=== PATIENT | male | born 1955 | race Caucasian/White ===

== ENCOUNTER 2017-09-06 12:37 | Inpatient (IN) | payer BC ==
[~2017-09-06] VITALS: Ht 180.3 cm; Wt 128.0 kg
[2017-09-06] VITALS (14 sets, daily range): BP systolic 134–169; BP diastolic 73–93
[~2017-09-06 12:37] MED LIST: CARVEDILOL25 MG PO; LO-DOSE ASPIRIN81 M2 PO; NIASPAN,SLO-NI500 MG PO; NIASPAN500 MG PO; NITROSTAT,NITR0.4 M1 SL; PHENERGAN-CODE120 ML PO; PLAVIX75 MG PO; PREDNISONE20 MG PO; PRINZIDE 20-121 EACH PO; Tylenol Regular Stre PO
[2017-09-06 13:52] LABS: BASOPHIL (%) 0.7 % (0-1); BASOPHIL COUNT 0.1 K/uL (0-0.1); EOSINOPHIL (%) 1.9 % (0-5); EOSINOPHIL COUNT 0.2 K/uL (0-0.3); IMMATURE GRANULOCYTE (%) 0.5 % (0.0-0.7); LYMPHOCYTE (%) 14.2 % (15-42); LYMPHOCYTE COUNT 1.2 K/uL (1.0-2.8); MCH 28.6 PG (29.0-34.0); MCHC 34.1 G/DL (30.0-36.0); MONOCYTE (%) 8.4 % (3-12); MONOCYTE COUNT 0.7 K/uL (0-0.8); NEUTROPHIL (%) 74.3 % (45-76); NEUTROPHIL COUNT 6.3 K/uL (1.8-6.4); PLATELET COUNT 178 K/uL (156-360); RBC DIS.WIDTH-CV 13.2 % (11.8-14.6); RBC DIS.WIDTH-SD 40.2 % (39-53); RED BLOOD COUNT 5.24 M/uL (4.00-5.50); WHITE BLOOD COUNT 8.5 K/uL (4.1-10.2)
[2017-09-06 14:00] LABS: PTT 27.2 SEC (25-37)
[2017-09-06 14:03] LABS: ALBUMIN 4.2 g/dL (3.2-4.8); CHLORIDE 104 mEq/L (99-109); POTASSIUM 4.4 mEq/L (3.7-5.4); SODIUM 138 mEq/L (136-147)
[2017-09-06 14:04] LABS: AMYLASE 45 IU/L (1-118)
[2017-09-06 14:06] LABS: GLUCOSE 133 mg/dL (70-99); TOTAL PROTEIN 7.3 g/dL (6.4-8.3)
[2017-09-06 14:08] LABS: TOTAL BILIRUBIN 0.3 mg/dL (0.0-1.0)
[2017-09-06 14:09] LABS: ALKALINE PHOSPHATASE 76 IU/L (3-129); SERUM ETHYL ALCOHOL < 10 mg/dL
[2017-09-06 14:10] LABS: CREATININE 0.9 mg/dL (0.6-1.3); GFR ESTIMATE (CALCULATED) > 59 mL/min/ (58.99-99999)
[2017-09-06 14:11] LABS: AST (GOT) 44 IU/L (2-34); UREA NITROGEN (BUN) 16 mg/dL (9-23)
[2017-09-06 14:12] LABS: ALT (GPT) 72 IU/L (3-49)
[2017-09-06 14:13] LABS: LIPASE 19 U/L (1.0-51.0)
[2017-09-06 14:18] LABS: TROP-I INTERPRETATION NEGATIVE; TROPONIN-I < 0.01 ng/mL (0.0-0.30)
[2017-09-06] MEDS ORDERED: DICLOFENAC SODI75 MG PO (15:50)
[2017-09-06] MEDS ORDERED: LISINOPRIL5 MG PO (15:50)
[2017-09-06 15:51] LABS: APPEARANCE CLEAR ((CLEAR)); BILIRUBIN NEGATIVE; BLOOD NEGATIVE; COLOR YELLOW ((YELLOW)); GLUCOSE (STRIP) NEGATIVE; KETONES NEGATIVE; LEUKOCYTES NEGATIVE; NITRITE NEGATIVE; PROTEIN (STRIP) NEGATIVE; SPECIFIC GRAVITY 1.015 (1.000-1.030); UCUL ADDED? NO; UROBILINOGEN 0.2 MG/DL (0.2-1.0)
[2017-09-06] MEDS ORDERED: TEMAZEPAM30 MG PO (15:51)
[2017-09-06] MEDS ORDERED: ONE DAILY FOR1 EAC2 PO (15:52)
[2017-09-06] MEDS ORDERED: SPIRONOLACTONE25 MG PO (15:52)
[2017-09-06] MEDS ORDERED: AGELESS MALE PO (15:55)
[2017-09-06] MEDS ORDERED: MYNEPHRON CAPSUL1 MG PO (15:58)
[2017-09-06 15:59] LABS: AMPHETAMINE NEGATIVE (500 ng/mL); BENZODIAZEPINES PRESUMPTIVE POSITIVE (150 ng/mL); COCAINE NEGATIVE (150 ng/mL); METHAMPHETAMINE NEGATIVE (500 ng/mL); OPIATES (MORPHINE) NEGATIVE (100 ng/mL); PHENCYCLIDINE NEGATIVE (25 ng/mL); THC CANNABINOIDS NEGATIVE (50 ng/mL)
[2017-09-06] MEDS ORDERED: ZETIA10 MG PO (15:59)
[2017-09-06 16:00] LABS: BARBITURATES NEGATIVE (200 ng/mL); BUPRENORPHINE NEGATIVE (10 ng/mL); METHADONE NEGATIVE (200 ng/mL); OXYCODONE NEGATIVE (100 ng/mL); PROPOXYPHENE NEGATIVE (300 ng/mL); TRICYCLIC ANTIDEPRESSANTS NEGATIVE (300 ng/mL)
[2017-09-06] MEDS ORDERED: CO Q-10200 MG PO (16:00)
[2017-09-06] MEDS ORDERED: GLUCOSAMINE-CH1 EA48 PO (16:03)
[2017-09-06] MEDS ORDERED: TYLENOL REGULA325 MG PO (16:04)
[2017-09-06 16:40] LABS: BENZODIAZEPINES, URINE SCREEN Negative (200 ng/mL)
[2017-09-06 21:57] LABS: HDL CHOLESTEROL 29 MG/DL (Desirable>=40); LDL CHOLESTEROL 136 mg/dL (Desirable<100); NON-HDL CHOLESTEROL 201 mg/dL (Desirable<160); TOTAL CHOLESTEROL 230 mg/dL (Desirable<200); TRIGLYCERIDES 326 MG/DL (Normal: <150)
[2017-09-07] VITALS (20 sets, daily range): BP systolic 126–172; BP diastolic 58–93
[2017-09-07 05:30] LABS: BASOPHIL (%) 0.4 % (0-1); EOSINOPHIL (%) 1.6 % (0-5); EOSINOPHIL COUNT 0.1 K/uL (0-0.3); HEMATOCRIT 43.5 % (38.0-50.0); HEMOGLOBIN 14.8 G/DL (12.5-16.6); IMMATURE GRANULOCYTE (%) 0.3 % (0.0-0.7); LYMPHOCYTE (%) 17.9 % (15-42); LYMPHOCYTE COUNT 1.4 K/uL (1.0-2.8); MCH 28.8 PG (29.0-34.0); MCV 84.6 FL (86-99); MONOCYTE (%) 7.9 % (3-12); MONOCYTE COUNT 0.6 K/uL (0-0.8); NEUTROPHIL (%) 71.9 % (45-76); NEUTROPHIL COUNT 5.6 K/uL (1.8-6.4); PLATELET COUNT 181 K/uL (156-360); RBC DIS.WIDTH-CV 13.4 % (11.8-14.6); RBC DIS.WIDTH-SD 41.9 % (39-53); RED BLOOD COUNT 5.14 M/uL (4.00-5.50); WHITE BLOOD COUNT 7.7 K/uL (4.1-10.2)
[2017-09-07 05:44] LABS: INTER. NORMALIZED RATIO 1.1
[2017-09-07 05:47] LABS: PTT 25.4 SEC (25-37)
[2017-09-07 06:01] LABS: ALKALINE PHOSPHATASE 60 IU/L (3-129); ALT (GPT) 55 IU/L (3-49); AST (GOT) 33 IU/L (2-34); CHLORIDE 107 MEQ/L (99-109); CREATININE 0.8 MG/DL (0.6-1.3); GFR ESTIMATE (CALCULATED) > 59 mL/min/ (58.99-99999); GLUCOSE 125 mg/dL (70-99); MAGNESIUM 2.1 mg/dl (1.3-2.7); PHOSPHORUS 2.7 mg/dL (2.5-4.9); POTASSIUM 4.3 MEQ/L (3.7-5.4); SODIUM 140 MEQ/L (136-147); TOTAL BILIRUBIN 0.6 MG/DL (0.0-1.0); TOTAL PROTEIN 6.5 G/DL (6.4-8.3); UREA NITROGEN (BUN) 13 mg/dL (9-23)
[2017-09-07 10:27] LABS: HEMOGLOBIN A1c (GLYCOHEMOGLOB) 6.6 % (Below 5.7)
[2017-09-08] VITALS (13 sets, daily range): BP systolic 117–183; BP diastolic 46–99
[2017-09-08 09:59] LABS: BASOPHIL (%) 0.5 % (0-1); EOSINOPHIL (%) 1.1 % (0-5); EOSINOPHIL COUNT 0.1 K/uL (0-0.3); HEMATOCRIT 43.1 % (38.0-50.0); HEMOGLOBIN 14.8 G/DL (12.5-16.6); IMMATURE GRANULOCYTE (%) 0.6 % (0.0-0.7); LYMPHOCYTE (%) 23.8 % (15-42); LYMPHOCYTE COUNT 1.5 K/uL (1.0-2.8); MCH 28.9 PG (29.0-34.0); MCHC 34.3 G/DL (30.0-36.0); MCV 84.2 FL (86-99); MONOCYTE (%) 9.3 % (3-12); MONOCYTE COUNT 0.6 K/uL (0-0.8); NEUTROPHIL (%) 64.7 % (45-76); NEUTROPHIL COUNT 4.2 K/uL (1.8-6.4); PLATELET COUNT 152 K/uL (156-360); RBC DIS.WIDTH-CV 13.2 % (11.8-14.6); RED BLOOD COUNT 5.12 M/uL (4.00-5.50); WHITE BLOOD COUNT 6.5 K/uL (4.1-10.2)
[2017-09-08 10:14] LABS: INTER. NORMALIZED RATIO 1.1
[2017-09-08 10:28] LABS: CHLORIDE 101 MEQ/L (99-109); CREATININE 0.8 MG/DL (0.6-1.3); GFR ESTIMATE (CALCULATED) > 59 mL/min/ (58.99-99999); MAGNESIUM 1.9 mg/dl (1.3-2.7); PHOSPHORUS 2.8 mg/dL (2.5-4.9); POTASSIUM 3.7 MEQ/L (3.7-5.4); SODIUM 135 MEQ/L (136-147); UREA NITROGEN (BUN) 13 mg/dL (9-23)
[2017-09-08 10:33] LABS: GLUCOSE 191 mg/dL (70-99)
[2017-09-09 03:36] VITALS: BP 126/68
[2017-09-09 08:11] VITALS: BP 132/77
[2017-09-09 12:24] VITALS: BP 151/71
[2017-09-09 16:15] VITALS: BP 125/79
[2017-09-09 19:25] VITALS: BP 154/78
[2017-09-09] MEDS ORDERED: DOCUSATE SODIU100 MG PO (20:41)
[2017-09-09] MEDS ORDERED: GEMFIBROZIL600 MG PO (20:42)
[2017-09-09] MEDS ORDERED: NICOTINE PATCH1 EAC1 TD (20:42)
[2017-09-09] MEDS ORDERED: MEDROL4 MG PO (20:42)
[2017-09-09] MEDS ORDERED: PRAVASTATIN SOD20 MG PO (21:00)
== END 2017-09-09 21:45 | disposition home or self-care (01) | DRG 61 ==
LOC: EME 12:37 → EDOF 15:24 → 4WEST 15:24 → ENRESERV 15:27 → 4WEST 17:38 → ENRESERV 09-08 14:46 → 5SOUTH 09-08 16:10
PROVIDERS: Emergency Medicine; Specialist
DX: I63.9 Cerebral infarction, unspecified (principal); I61.9 Nontraumatic intracerebral hemorrhage, unspecified; T45.615A Adverse effect of thrombolytic drugs, initial encounter; H53.40 Unspecified visual field defects; H53.462 Homonymous bilateral field defects, left side; I10 Essential (primary) hypertension; I25.10 Atherosclerotic heart disease of native coronary artery without angina pectoris; E78.5 Hyperlipidemia, unspecified; R11.0 Nausea; R42 Dizziness and giddiness; R51 Headache; I25.2 Old myocardial infarction; F17.200 Nicotine dependence, unspecified, uncomplicated; Z95.1 Presence of aortocoronary bypass graft; Z95.5 Presence of coronary angioplasty implant and graft; Z82.3 Family history of stroke; Z82.49 Family history of ischemic heart disease and other diseases of the circulatory system
CPT/HCPCS: 70450; 70496; 70498; 70551; 71045; 80048; 80053; 80061; 81003; 82150; 82948; 83036; 83690; 83735; 84100; 84484; 84999; 85025; 85610; 85730; 86850; 86900; 86901; 87641; 93005; 99281; 99285; G0480; J0360; J1644; J2060; J2405; J2765; J2997; J7030; J7509

== ENCOUNTER 2017-12-31 20:23 | Observation (INO) | payer BC ==
[~2017-12-31] VITALS: Ht 185.4 cm; Wt 132.2 kg
[~2017-12-31 20:23] MED LIST changes: +AGELESS MALE PO; +CO Q-10200 MG PO; +DICLOFENAC SODI75 MG PO; +DOCUSATE SODIU100 MG PO; +GEMFIBROZIL600 MG PO; +GLUCOSAMINE-CH1 EA48 PO; +LISINOPRIL10 MG PO; +MEDROL4 MG PO; +MYNEPHRON CAPSUL1 MG PO; +NICOTINE PATCH1 EAC1 TD; +ONE DAILY FOR1 EAC2 PO; +PRAVASTATIN SOD20 MG PO; +SPIRONOLACTONE25 MG PO; +TEMAZEPAM30 MG PO; +TYLENOL REGULA325 MG PO; +ZETIA10 MG PO
[2017-12-31 22:12] LABS: HEMATOCRIT 39.9 % (38.0-50.0); HEMOGLOBIN 13.8 G/DL (12.5-16.6); MCH 28.6 PG (29.0-34.0); MCHC 34.6 G/DL (30.0-36.0); MCV 82.8 FL (86-99); PLATELET COUNT 184 K/uL (156-360); RBC DIS.WIDTH-SD 39.3 % (39-53); RED BLOOD COUNT 4.82 M/uL (4.00-5.50); WHITE BLOOD COUNT 6.5 K/uL (4.1-10.2)
[2017-12-31 22:21] LABS: CHLORIDE 108 mEq/L (99-109); POTASSIUM 4.1 mEq/L (3.7-5.4); SODIUM 140 mEq/L (136-147)
[2017-12-31 22:22] LABS: GLUCOSE 153 mg/dL (70-99)
[2017-12-31 22:26] LABS: CREATININE 0.9 mg/dL (0.6-1.3); GFR ESTIMATE (CALCULATED) > 59 mL/min/ (58.99-99999)
[2017-12-31 22:27] LABS: UREA NITROGEN (BUN) 13 mg/dL (9-23)
[2017-12-31 22:33] LABS: TROP-I INTERPRETATION NEGATIVE; TROPONIN-I 0.02 ng/mL (0.0-0.30)
[2017-12-31] MEDS ORDERED: COREG CR20 MG PO (22:46)
[2017-12-31] MEDS ORDERED: ADULT ASPIRIN R81 MG PO (22:47)
[2017-12-31] MEDS ORDERED: CIALIS20 MG PO (22:47)
[2017-12-31 22:49] LABS: CREATINE KINASE 204 IU/L (1-294)
[2018-01-01 03:49] VITALS: BP 170/86
[2018-01-01 05:42] LABS: HEMATOCRIT 41.6 % (38.0-50.0); MCH 28.1 PG (29.0-34.0); MCHC 33.7 G/DL (30.0-36.0); MCV 83.5 FL (86-99); PLATELET COUNT 173 K/uL (156-360); RBC DIS.WIDTH-CV 13.1 % (11.8-14.6); RBC DIS.WIDTH-SD 39.3 % (39-53); RED BLOOD COUNT 4.98 M/uL (4.00-5.50); WHITE BLOOD COUNT 6.3 K/uL (4.1-10.2)
[2018-01-01 05:54] LABS: TROP-I INTERPRETATION NEGATIVE; TROPONIN-I 0.01 ng/mL (0.0-0.30)
[2018-01-01 06:04] LABS: CHLORIDE 106 MEQ/L (99-109); CREATININE 0.9 MG/DL (0.6-1.3); GFR ESTIMATE (CALCULATED) > 59 mL/min/ (58.99-99999); POTASSIUM 3.9 MEQ/L (3.7-5.4); SODIUM 141 MEQ/L (136-147); UREA NITROGEN (BUN) 11 mg/dL (9-23)
[2018-01-01 06:06] LABS: GLUCOSE 113 mg/dL (70-99)
[2018-01-01 07:32] VITALS: BP 155/72
[2018-01-01 10:13] LABS: TROP-I INTERPRETATION NEGATIVE; TROPONIN-I < 0.01 ng/mL (0.0-0.30)
== END 2018-01-01 11:04 | disposition home or self-care (01) ==
LOC: EXP 20:23 → EME 20:23 → EDOF 01-01 01:45 → ENRESERV 01-01 01:46 → 4SOUTH 01-01 03:22
PROVIDERS: Nurse Practitioner Adult Health
DX: R07.9 Chest pain, unspecified (principal); I10 Essential (primary) hypertension; E78.5 Hyperlipidemia, unspecified; I25.10 Atherosclerotic heart disease of native coronary artery without angina pectoris; Z86.73 Personal history of transient ischemic attack (TIA), and cerebral infarction without residual deficits; G43.909 Migraine, unspecified, not intractable, without status migrainosus; Z95.5 Presence of coronary angioplasty implant and graft; Z82.49 Family history of ischemic heart disease and other diseases of the circulatory system; Z82.3 Family history of stroke; Z87.891 Personal history of nicotine dependence; R42 Dizziness and giddiness; Z79.82 Long term (current) use of aspirin
CPT/HCPCS: 71046; 80048; 82550; 84484; 85027; 93005; 99281; 99285; G0378